=== PATIENT | female | born 1950 | race Two or more races ===

== ENCOUNTER 2019-10-08 11:46 | Emergency (ER) | payer OTHER ==
[~2019-10-08] VITALS: Ht 149.9 cm; Wt 66.7 kg
[2019-10-08 15:05] VITALS: BP 116/58
[2019-10-08] MEDS ORDERED: KETOROLAC TROMETH 60MG/2ML VIAL IM ONE (15:15)
[2019-10-08] MEDS ORDERED: METHOCARBAMOL 500 MG TAB PO ONE (15:30)
== END 2019-10-08 16:13 | disposition home or self-care (01) ==
LOC: ER 11:46
DX: M79.10 Myalgia, unspecified site (principal); R51 Headache; J32.9 Chronic sinusitis, unspecified; E11.9 Type 2 diabetes mellitus without complications; Z88.0 Allergy status to penicillin; Z88.2 Allergy status to sulfonamides; W18.39XA Other fall on same level, initial encounter; Y93.89 Activity, other specified; Y92.89 Other specified places as the place of occurrence of the external cause; Y99.8 Other external cause status
CPT/HCPCS: 70450; 96372; 99284; J1885

== ENCOUNTER 2021-01-05 14:52 | Emergency (ER) | payer OTHER ==
[~2021-01-05] VITALS: Ht 149.9 cm; Wt 66.2 kg
[2021-01-05 17:30] VITALS: BP 100/52
[2021-01-05] MEDS ORDERED: methylPREDNISolone SOD SUCC 125 MG/2 ML VL IM ONE (17:45)
== END 2021-01-05 18:03 | disposition home or self-care (01) ==
LOC: ER 14:52
DX: M47.816 Spondylosis without myelopathy or radiculopathy, lumbar region (principal); M25.551 Pain in right hip; E11.9 Type 2 diabetes mellitus without complications; Z88.0 Allergy status to penicillin; Z88.2 Allergy status to sulfonamides
CPT/HCPCS: 72100; 73502; 96372; 99284; J2930